=== PATIENT | female | born 2000 | race African-American/Black ===

== ENCOUNTER 2023-10-02 15:05 | Emergency (ER) | payer OTHER, SELFPAY ==
[~2023-10-02 15:05] MED LIST: Iopamidol-370 76% 500 ML MDV (1 ML CHARGE) ONE
[2023-10-02] MEDS ORDERED: Ondansetron PF 4 MG/2 ML Vial ONE (16:12)
[2023-10-02] MEDS ORDERED: fentaNYL 50 mcg/mL 1 mL Vial ONE (16:38)
[2023-10-02 16:39] LABS: #Monocytes 0.6 thou/uL (0.11-0.59); #Neutrophils 8.7 thou/uL (1.40-6.50); %Basophils 0.3 % (0.0-1.0); %Monocytes 5.7 % (0.0-10.0); %Neutrophils 81.5 % (42.0-75.0); Hematocrit 39.3 % (36.0-47.0); Hemoglobin 14.5 g/dL (12.0-16.0); Mean Corpuscular HGB CONC 36.9 g/dL (32.0-36.0); Mean Corpuscular Hemoglobin 28.2 pg (27.0-31.0); Mean Corpuscular Volume 76.5 fl (78.0-98.0); Mean Platelet Volume 11.3 fL (7.4-10.4); Platelet Count 289 10x3/uL (130-400); RBC Distribution Width 14.2 % (11.5-14.5); Red Blood Cell (RBC) Count 5.14 mill/uL (4.20-5.40); White Blood Cell (WBC) Count 10.6 10x3/uL (4.8-10.8)
[2023-10-02 17:04] LABS: ALT (SGPT) 17 U/L (8-55); AST (SGOT) 26 U/L (5-34); Albumin 4.5 g/dL (3.5-5.0); Alkaline Phosphatase 84 U/L (40-110); Anion Gap 18 mmol/L (10-20); BUN (Urea Nitrogen) 6 mg/dL (7.0-18.7); Bilirubin, Total 0.6 mg/dL (0.2-1.2); CK (CPK) 173 U/L (29-168); Calc. Creatinine Clearance 0 mL/min (70-130); Calcium 9.6 mg/dL (7.8-10.44); Carbon Dioxide 20 mmol/L (22-29); Chloride 101 mmol/L (98-107); Estimated GFR 107; Globulin 4.1 g/dL (2.4-3.5); Glucose 91 mg/dL (70-105); Lipase 22 U/L (8-78); Potassium 3.5 mmol/L (3.5-5.1); Protein, Total 8.6 g/dL (6.0-8.3); Sodium 135 mmol/L (136-145)
[2023-10-02 17:06] LABS: BHCG - Serum Negative (NEGATIVE); Pregs Control Background? CLEAR/WHITE (CLR/WHITE); Pregs Control Bar Appear? YES (CONTROL BAR)
[2023-10-02] MEDS ORDERED: Morphine 2 MG/ML VIAL ONE (17:57)
[2023-10-02] MEDS ORDERED: Pantoprazole 40 MG VIAL ONE (18:13)
[2023-10-02 18:50] LABS: Bacteria/HPF None Seen HPF (None Seen); Bilirubin Negative (Negative); Blood, Urine 1+ (Negative); CAUTI Indications for Culture Pelvic or flank pain; Clarity Clear (Clear); Glucose, Urine (Dipstick) Normal (Negative); Ketone, Urine 10 mg/dL (Negative); Leukocyte Negative Leu/uL (Negative); Nitrite Negative (Negative); Protein, Urine (Dipstick) Negative (Neg-Trace); Squamous Epithelial 0-3 HPF (0-3); Urobilinogen Normal mg/dL (Less than 2); WBC/HPF 0-3 HPF (0-3)
[2023-10-02 18:53] LABS: Specific Gravity, Urine 1.047 (1.002-1.036)
[2023-10-02 18:55] LABS: Urine Culture Reflex No No
== END 2023-10-02 20:19 | disposition home or self-care (01) ==
LOC: ERS 15:05
DX: K29.70 Gastritis, unspecified, without bleeding (principal); E86.0 Dehydration
CPT/HCPCS: 74177; 80053; 81001; 82550; 83690; 84703; 85025; 93005; 96374; 96375; C9113; J2272; J2405; J3010; Q9967